=== PATIENT | male | born 1980 | race Caucasian/White ===

== ENCOUNTER 2017-05-28 06:07 | Emergency (ER) | payer MEDICAID ==
[~2017-05-28] VITALS: Ht 170.2 cm; Wt 79.6 kg
[2017-05-28] MEDS ORDERED: PROPARACAINE OPHTH 0.5%, 15ML ONE (06:38)
[2017-05-28] MEDS ORDERED: FLUORESCEIN OPHTHALMIC 1 MG STRIP ONE (06:38)
[2017-05-28] MEDS ORDERED: PROPARACAINE OPHTH 0.5%, 15ML EACHEYE ONE (07:00)
[2017-05-28] MEDS ORDERED: FLUORESCEIN OPHTHALMIC 1 MG STRIP EACHEYE ONE (07:00)
[2017-05-28 07:36] VITALS: BP 130/83
== END 2017-05-28 07:39 | disposition home or self-care (01) ==
LOC: ED 07:09
DX: H18.822 Corneal disorder due to contact lens, left eye (principal)
CPT/HCPCS: 99283

== ENCOUNTER 2017-05-29 09:50 | Emergency (ER) | payer MEDICAID ==
[~2017-05-29] VITALS: Ht 170.2 cm; Wt 79.7 kg
[2017-05-29 09:53] VITALS: BP 131/88
[2017-05-29] MEDS ORDERED: FLUORESCEIN OPHTHALMIC 1 MG STRIP ONE ×2 (10:10→10:14)
[2017-05-29] MEDS ORDERED: PROPARACAINE OPHTH 0.5%, 15ML ONE ×3 (10:10→13:40)
[2017-05-29] MEDS ORDERED: OXYcodone/APAP 5/325MG TABLET ONE (10:27)
[2017-05-29] MEDS ORDERED: PROPARACAINE OPHTH 0.5%, 15ML LEFTEYE ONE (10:30)
[2017-05-29] MEDS ORDERED: FLUORESCEIN OPHTHALMIC 1 MG STRIP LEFTEYE ONE (10:30)
[2017-05-29] MEDS ORDERED: OXYcodone/APAP 5/325MG TABLET PO ONE (10:30)
[2017-05-29] MEDS ORDERED: CYCLOPENTOLATE OPHTH SOLN 1%, 15ML LEFTEYE ONE (13:00)
== END 2017-05-29 13:48 | disposition home or self-care (01) ==
LOC: ED 10:35
DX: H16.3 Interstitial and deep keratitis (principal); M54.2 Cervicalgia
CPT/HCPCS: 99291